=== PATIENT | female | born 1985 | race African-American/Black ===

== ENCOUNTER 2018-06-27 05:22 | Inpatient (IN) | payer MEDICAID ==
[2018-06-27] MEDS ORDERED: Terbutaline 1 MG/ML SDV SUBCUT PRN (05:34)
[2018-06-27] MEDS ORDERED: Oxytocin/0.9 % Sodium Chloride 30 UNIT/500 ML BAG IV SCH ×2 (05:45→06:00)
[2018-06-27] MEDS ORDERED: Lidocaine 1% 50 ML MDV INJECT PRN (05:47)
[2018-06-27] MEDS ORDERED: Tranexamic Acid 1,000 MG in Sodium Chloride 0.9% 100 ML IV PRN (05:47)
[2018-06-27] MEDS ORDERED: Water For Irrigation,Sterile 1,000 ML Container IRR PRN (05:47)
[2018-06-27] MEDS ORDERED: Sodium Chloride 0.9% 2.5 ML Syringe FLUSH PRN (05:47)
[2018-06-27] MEDS ORDERED: Misoprostol 200 MCG Tab PO PRN (05:47)
[2018-06-27] MEDS ORDERED: Butorphanol 1 MG/ML SDV IVPUSH PRN (05:47)
[2018-06-27] MEDS ORDERED: Carboprost Tromethamine 250 MCG/1 ML Amp IM PRN (05:47)
[2018-06-27] MEDS ORDERED: Nalbuphine 10 MG/1 ML Vial IVPUSH PRN (05:47)
[2018-06-27] MEDS ORDERED: Sodium Chloride 0.9% 10 ML Syringe FLUSH PRN (05:47)
[2018-06-27] MEDS ORDERED: Methylergonovine 0.2 MG/1 ML Amp IM PRN (05:47)
[2018-06-27] MEDS ORDERED: Misoprostol 25 MCG (1/4 of 100 MCG) Tab VAG PRN ×2 (06:00→10:00)
[2018-06-27] MEDS ORDERED: Misoprostol 200 MCG Tab PO SCH (06:00)
[2018-06-27] MEDS: Lactated Ringers 1,000 ML IV SCH ×2 (06:00→14:12)
[2018-06-27] MEDS ORDERED: Misoprostol 25 MCG (1/4 of 100 MCG) Tab PO ONE (06:16)
[2018-06-27] MEDS ORDERED: Misoprostol 25 MCG (1/4 of 100 MCG) Tab PO PRN (10:45)
--- NOTE | 2018-06-27 13:25 | PCM.LDHP ---
L&D History of Present Illness - General Date of Service: 06/27/18 Admit Problem/Dx: Patient Status Order with Admit Dx/Problem 06/27/18 05:47 Patient Status [ADT] Routine Admission Diagnosis/Problem Admission Diagnosis/Problem Planned Source of Information: Patient History Limitations: Reports: No Limitations - History of Present Illness Improves with: Reports: None Worsens with: Reports: None Associated Symptoms: Reports: N - Related Data Allergies/Adverse Reactions: Allergies Allergy/AdvReac Type Severity Reaction Status Date / Time No Known Allergies Allergy Verified 06/27/18 05:33 Home Medications: Home Meds PNV95/Ferrous Fumarate/FA [ Vitamin Tablet] 1 tab PO DAILY 06/27/18 [ History] Past Medical History HEENT History: Reports: None Cardiovascular History: Reports: None Respiratory History: Reports: None Gastrointestinal History: Reports: None Genitourinary History: Reports: None 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: , Other (See Below) Musculoskeletal History: Reports: None Neurological History: Reports: None Psychiatric History: Reports: None Endocrine/Metabolic History: Reports: None Hematologic History: Reports: None Immunologic History: Reports: None Oncologic (Cancer) History: Reports: None Dermatologic History: Reports: None - Infectious Disease History Infectious Disease History: Reports: Chicken Pox - Past Surgical History Head Surgeries/Procedures: Reports: None HEENT Surgical History: Reports: None Cardiovascular Surgical History: Reports: None Respiratory Surgical History: Reports: None GI Surgical History: Reports: None Female Surgical History: Reports: None Endocrine Surgical History: Reports: None Neurological Surgical History: Reports: None Musculoskeletal Surgical History: Reports: None Oncologic Surgical History: Reports: None Dermatological Surgical History: Reports: None Social & Family History - Family History Family Medical History: Unobtainable Endocrine/Metabolic: Reports: Diabetes, type II - Tobacco Use Smoking Status *Q: Never Smoker Second Hand Smoke Exposure: No - Recreational Drug Use Recreational Drug Use: No H&P Review of Systems - Review of Systems: Review Of Systems: See Below General: Reports: No Symptoms HEENT: Reports: No Symptoms Pulmonary: Reports: No Symptoms Cardiovascular: Reports: No Symptoms Gastrointestinal: Reports: No Symptoms Genitourinary: Reports: No Symptoms Musculoskeletal: Reports: No Symptoms Skin: Reports: No Symptoms Psychiatric: Reports: No Symptoms Neurological: Reports: No Symptoms Hematologic/Lymphatic: Reports: No Symptoms Immunologic: Reports: No Symptoms L&D Exam - Exam Exam: See Below - Vital Signs Weight: 91.172 kg - OB Specific Fundal Height In cm: 38 Contraction Intensity: Mild Movement: Active Heart Tones: Present Presentation: Vertex - Kwong Score Kwong Score Cervix Position: Midposition Kwong Score Consistency: Soft Kwong Score Effacement: 31-50% Kwong Score Dilation: 1-2 cm Kwong Score 's Station: -2 Kwong Score Total: 6 - Exam General: Alert, Oriented HEENT: PERRLA, Conjunctiva Clear, EACs Clear, EOMI, Hearing Intact, Mucosa Moist & [place], Nares Patent, Normal Nasal Septum, Posterior Pharynx Clear, TMs Clear Neck: Supple, Trachea Midline Lungs: Clear to Auscultation, Normal Respiratory Effort Cardiovascular: Regular Rate, Regular Rhythm GI/Abdominal Exam: Normal Bowel Sounds, Soft, Non-Tender, No Organomegaly, No Distention, No Abnormal Bruit, No Mass, Pelvis Stable Rectal Exam: Normal Exam, Normal Rectal Tone Genitourinary: Normal external exam, Normal bimanual exam, Normal speculum exam Back Exam: Normal Inspection, Full Range of Motion Extremities: Normal Inspection, Normal Range of Motion, Non-Tender, No Pedal Edema, Normal Capillary Refill Skin: Warm, Dry, Intact Neurological: Cranial Nerves Intact, Reflexes Equal Bilateral Psychiatric: Alert, Normal Affect, Normal Mood - Patient Data Lab Results Last 24 hrs: Laboratory Results - last 24 hr 06/27/18 06/27/18 Range/Units 05:55 05:55 WBC 5.58 (4.0-11.0) K/uL RBC 4.23 L (4.30-5.90) M/uL Hgb 12.2 (12.0-16.0) g/dL Hct 36.5 (36.0-46.0) % MCV 86.3 (80.0-98.0) fL MCH 28.8 (27.0-32.0) pg MCHC 33.4 (31.0-37.0) g/dL RDW Std Deviation 44.6 (28.0-62.0) fl RDW Coeff of [place] 15 (11.0-15.0) % Plt Count 193 (150-400) K/uL MPV 10.70 (7.40-12.00) fL Nucleated RBC % 0.0 /100WBC Nucleated RBCs # 0 K/uL Blood Type O POSITIVE Antibody Screen NEGATIVE Result Diagrams: 06/27/18 05:55 Problem List Initiated/Reviewed/Updated: Yes Orders Last 24hrs: Active Orders 24 hr Category Date Time Status Patient Status [ADT] Routine ADT 06/27/18 05:47 Active Bedrest Bathroom Privileges [RC] ASDIRECTED Care 06/27/18 05:34 Active Communication Order [RC] ASDIRECTED Care 06/27/18 05:34 Active Communication Order [RC] ASDIRECTED Care 06/27/18 05:34 Active Communication Order [RC] ASDIRECTED Care 06/27/18 05:34 Active Heart Tones [RC] CONTINUOUS Care 06/27/18 05:47 Active Non Stress Test [RC] PER UNIT ROUTINE Care 06/27/18 05:47 Active May Shower [RC] ASDIRECTED Care 06/27/18 05:47 Active Notify Provider [RC] PRN Care 06/27/18 05:34 Active Notify Provider [RC] PRN Care 06/27/18 05:34 Active Notify Provider [RC] PRN Care 06/27/18 05:47 Active Notify Provider [RC] STAT Care 06/27/18 05:34 Active Oxygen Therapy [RC] ASDIRECTED Care 06/27/18 05:34 Active Up ad Mell [RC] ASDIRECTED Care 06/27/18 05:47 Active Vaginal Exam [RC] PRN Care 06/27/18 05:34 Active Vaginal Exam [RC] PRN Care 06/27/18 05:47 Active Vital Signs [RC] PER UNIT ROUTINE Care 06/27/18 05:34 Active Vital Signs [RC] PER UNIT ROUTINE Care 06/27/18 05:47 Active Regular Diet [DIET] Diet 06/27/18 Lunch Active Butorphanol [Stadol] Med 06/27/18 05:47 Active 1 mg IVPUSH Q1H PRN Carboprost Tromethamine [Hemabate DS] Med 06/27/18 05:47 Active 250 mcg IM ASDIRECTED PRN Lactated Ringers [Ringers, Lactated] 1,000 ml Med 06/27/18 06:00 Active IV ASDIRECTED Lidocaine 1% [Xylocaine 1%] Med 06/27/18 05:47 Active 50 ml INJECT ONETIME PRN Methylergonovine [Methergine] Med 06/27/18 05:47 Active 0.2 mg IM ASDIRECTED PRN Nalbuphine [Nubain] Med 06/27/18 05:47 Active 10 mg IVPUSH Q1H PRN Oxytocin/0.9 % Sodium Chloride [Oxytocin 30 Unit/500 ML Med 06/27/18 05:45 Active -NS] 30 unit in 500 ml IV TITRATE Oxytocin/0.9 % Sodium Chloride [Oxytocin 30 Unit/500 ML Med 06/27/18 06:00 Active -NS] 30 unit in 500 ml IV TITRATE Sodium Chloride 0.9% [Saline Flush] Med 06/27/18 05:47 Active 10 ml FLUSH ASDIRECTED PRN Sodium Chloride 0.9% [Saline Flush] Med 06/27/18 05:47 Active 2.5 ml FLUSH ASDIRECTED PRN Terbutaline [Brethine] Med 06/27/18 05:34 Active 0.25 mg SUBCUT ASDIRECTED PRN Tranexamic Acid [Cyklokapron] 1,000 mg Med 06/27/18 05:47 Active Sodium Chloride 0.9% [Normal Saline] 100 ml IV ONETIME Water For Irrigation,Sterile [Sterile Water for Med 06/27/18 05:47 Active Irrigation] 1,000 ml IRR ASDIRECTED PRN miSOPROStol [Cytotec] Med 06/27/18 05:47 Active 200 mcg PO ONETIME PRN miSOPROStol [Cytotec] Med 06/27/18 10:45 Active 25 mcg PO Q4H PRN miSOPROStol [Cytotec] Med 06/27/18 06:00 Active 25 mcg VAG ONETIME PRN miSOPROStol [Cytotec] Med 06/27/18 10:00 Active 25 mcg VAG Q4H PRN Scalp Electrode [WOMSER] Per Unit Routine Oth 06/27/18 05:47 Ordered Medication Administration Instruction [OM.PC] Q3H Oth 06/27/18 05:45 Ordered Peripheral IV Insertion Adult [OM.PC] Routine Oth 06/27/18 05:47 Ordered Resuscitation Status Routine Resus Stat 06/27/18 05:47 Ordered Medication Orders Butorphanol Tartrate (Stadol) 1 mg IVPUSH Q1H PRN PRN Reason: Pain Carboprost Tromethamine (Hemabate Ds) 250 mcg IM ASDIRECTED PRN PRN Reason: Post Hemorrhage Oxytocin/Sodium Chloride (Oxytocin 30 Unit/500 Ml-Ns) 30 unit in 500 mls @ 2 mls/hr IV TITRATE DALIA; Protocol Lactated Ringer's (Ringers, Lactated) 1,000 mls @ 150 mls/hr IV ASDIRECTED DALIA Last Admin: 06/27/18 06:00 Dose: 500 mls/hr Oxytocin/Sodium Chloride (Oxytocin 30 Unit/500 Ml-Ns) 30 unit in 500 mls @ 999 mls/hr IV TITRATE DALIA Tranexamic Acid 1,000 mg/ (Sodium Chloride) 110 mls @ 660 mls/hr IV ONETIME PRN PRN Reason: Bleeding Lidocaine HCl (Xylocaine 1%) 50 ml INJECT ONETIME PRN PRN Reason: Laceration repair Methylergonovine Maleate (Methergine) 0.2 mg IM ASDIRECTED PRN PRN Reason: Post Hemorrhage Misoprostol (Cytotec) 25 mcg VAG ONETIME PRN PRN Reason: Cervical Ripening Last Admin: 06/27/18 06:45 Dose: 25 mcg Misoprostol (Cytotec) 25 mcg VAG Q4H PRN PRN Reason: Cervical Ripening Last Admin: 06/27/18 10:50 Dose: 25 mcg Misoprostol (Cytotec) 200 mcg PO ONETIME PRN PRN Reason: Post Hemorrhage Misoprostol (Cytotec) 25 mcg PO Q4H PRN PRN Reason: Other Last Admin: 06/27/18 10:51 Dose: 25 mcg Nalbuphine HCl (Nubain) 10 mg IVPUSH Q1H PRN PRN Reason: Pain (severe 7-10) Sodium Chloride (Saline Flush) 10 ml FLUSH ASDIRECTED PRN PRN Reason: Keep Vein Open Sodium Chloride (Saline Flush) 2.5 ml FLUSH ASDIRECTED PRN PRN Reason: Keep Vein Open Sterile Water (Sterile Water For Irrigation) 1,000 ml IRR ASDIRECTED PRN PRN Reason: delivery Terbutaline Sulfate (Brethine) 0.25 mg SUBCUT ASDIRECTED PRN PRN Reason: Tacysystole Assessment/Plan Comment:: Prostate admitted for elective induction with the Cytotec and Pitocin. Pelvic examination and she is to 60% vertex -3 I do not fissure rupture of the membrane clear fluid. We will start her on Pitocin as per protocol and she can have epidural anesthesia when it is appropriate.
[2018-06-27] MEDS ORDERED: Lidocaine HCl/EPINEPHrine 5 ML IJ ONE (15:49)
--- NOTE | 2018-06-27 16:43 | PCM.PREANE ---
Preanesthetic Assessment - Anesthesia/Transfusion/Family Hx Anesthesia History: Prior Anesthesia Without Reaction Transfusion History: No Prior Transfusion(s) - Review of Systems General: No Symptoms Pulmonary: No Symptoms Cardiovascular: No Symptoms Gastrointestinal: No Symptoms Neurological: No Symptoms Other: Reports: None - Physical Assessment Height: 5 ft 7 in Weight: 91.172 kg ASA Class: 2 Mental Status: Alert & Oriented x3 Airway Class: Mallampati = 2 Dentition: Reports: Normal Dentition Thyro-Mental Finger Breadths: 3 Mouth Opening Finger Breadths: 3 ROM/Head Extension: Full Lungs: Clear to Auscultation, Normal Respiratory Effort Cardiovascular: Regular Rate, Regular Rhythm - Lab Values: Laboratory Last Values WBC 5.58 K/uL (4.0-11.0) 06/27/18 05:55 RBC 4.23 M/uL (4.30-5.90) L 06/27/18 05:55 Hgb 12.2 g/dL (12.0-16.0) 06/27/18 05:55 Hct 36.5 % (36.0-46.0) 06/27/18 05:55 MCV 86.3 fL (80.0-98.0) 06/27/18 05:55 MCH 28.8 pg (27.0-32.0) 06/27/18 05:55 MCHC 33.4 g/dL (31.0-37.0) 06/27/18 05:55 RDW Std Deviation 44.6 fl (28.0-62.0) 06/27/18 05:55 RDW Coeff of [place] 15 % (11.0-15.0) 06/27/18 05:55 Plt Count 193 K/uL (150-400) 06/27/18 05:55 MPV 10.70 fL (7.40-12.00) 06/27/18 05:55 Nucleated RBC % 0.0 /100WBC 06/27/18 05:55 Nucleated RBCs # 0 K/uL 06/27/18 05:55 Blood Type O POSITIVE 06/27/18 05:55 Antibody Screen NEGATIVE 06/27/18 05:55 - Allergies Allergies/Adverse Reactions: Allergies Allergy/AdvReac Type Severity Reaction Status Date / Time No Known Allergies Allergy Verified 06/27/18 05:33 - Acknowledgements Anesthesia Type Planned: Epidural Pt an Appropriate Candidate for the Planned Anesthesia: Yes Alternatives and Risks of Anesthesia Discussed w Pt/Guardian: Yes Pt/Guardian Understands and Agrees with Anesthesia Plan: Yes PreAnesthesia Questionnaire HEENT History: Reports: None Cardiovascular History: Reports: None Respiratory History: Reports: None Gastrointestinal History: Reports: None Genitourinary History: Reports: None 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: , Other (See Below) : 3 Para: 1 LMP (Approximate): Musculoskeletal History: Reports: None Neurological History: Reports: None Psychiatric History: Reports: None Endocrine/Metabolic History: Reports: None Hematologic History: Reports: None Immunologic History: Reports: None Oncologic (Cancer) History: Reports: None Dermatologic History: Reports: None - Infectious Disease History Infectious Disease History: Reports: Chicken Pox - Past Surgical History Head Surgeries/Procedures: Reports: None HEENT Surgical History: Reports: None Cardiovascular Surgical History: Reports: None Respiratory Surgical History: Reports: None GI Surgical History: Reports: None Female Surgical History: Reports: None Endocrine Surgical History: Reports: None Neurological Surgical History: Reports: None Musculoskeletal Surgical History: Reports: None Oncologic Surgical History: Reports: None Dermatological Surgical History: Reports: None - SUBSTANCE USE Smoking Status *Q: Never Smoker Second Hand Smoke Exposure: No Recreational Drug Use History: No - HOME MEDS Home Medications: Home Meds PNV95/Ferrous Fumarate/FA [ Vitamin Tablet] 1 tab PO DAILY 06/27/18 [ History] - CURRENT (IN HOUSE) MEDS Current Meds: Current Medications Butorphanol Tartrate (Stadol) 1 mg IVPUSH Q1H PRN PRN Reason: Pain Carboprost Tromethamine (Hemabate Ds) 250 mcg IM ASDIRECTED PRN PRN Reason: Post Hemorrhage Oxytocin/Sodium Chloride (Oxytocin 30 Unit/500 Ml-Ns) 30 unit in 500 mls @ 2 mls/hr IV TITRATE DALIA; Protocol Last Admin: 06/27/18 14:08 Dose: 2 munits/min, 2 mls/hr Lactated Ringer's (Ringers, Lactated) 1,000 mls @ 150 mls/hr IV ASDIRECTED DALIA Last Admin: 06/27/18 14:12 Dose: 150 mls/hr Oxytocin/Sodium Chloride (Oxytocin 30 Unit/500 Ml-Ns) 30 unit in 500 mls @ 999 mls/hr IV TITRATE DALIA Tranexamic Acid 1,000 mg/ (Sodium Chloride) 110 mls @ 660 mls/hr IV ONETIME PRN PRN Reason: Bleeding Lidocaine HCl (Xylocaine 1%) 50 ml INJECT ONETIME PRN PRN Reason: Laceration repair Methylergonovine Maleate (Methergine) 0.2 mg IM ASDIRECTED PRN PRN Reason: Post Hemorrhage Misoprostol (Cytotec) 25 mcg VAG ONETIME PRN PRN Reason: Cervical Ripening Last Admin: 06/27/18 06:45 Dose: 25 mcg Misoprostol (Cytotec) 25 mcg VAG Q4H PRN PRN Reason: Cervical Ripening Last Admin: 06/27/18 10:50 Dose: 25 mcg Misoprostol (Cytotec) 200 mcg PO ONETIME PRN PRN Reason: Post Hemorrhage Misoprostol (Cytotec) 25 mcg PO Q4H PRN PRN Reason: Other Last Admin: 06/27/18 10:51 Dose: 25 mcg Nalbuphine HCl (Nubain) 10 mg IVPUSH Q1H PRN PRN Reason: Pain (severe 7-10) Sodium Chloride (Saline Flush) 10 ml FLUSH ASDIRECTED PRN PRN Reason: Keep Vein Open Sodium Chloride (Saline Flush) 2.5 ml FLUSH ASDIRECTED PRN PRN Reason: Keep Vein Open Sterile Water (Sterile Water For Irrigation) 1,000 ml IRR ASDIRECTED PRN PRN Reason: delivery Terbutaline Sulfate (Brethine) 0.25 mg SUBCUT ASDIRECTED PRN PRN Reason: Tacysystole Discontinued Medications Fentanyl/Bupivacaine HCl (Uosxirmv-Opqch-Nq 2 Mcg/Ml-0.125%) Confirm Administered Dose 100 mls @ as directed .ROUTE .STK-MED ONE Stop: 06/27/18 15:49 Lidocaine/Epinephrine (Lidocaine 1.5%-Epi 1:200,000) Confirm Administered Dose 5 ml IJ .STK-MED ONE Stop: 06/27/18 15:50 Misoprostol (Cytotec) 25 mcg PO Q4H DALIA Misoprostol (Cytotec) 25 mcg PO ONETIME ONE Stop: 06/27/18 06:17 Last Admin: 06/27/18 06:41 Dose: 25 mcg
[2018-06-27] MEDS ORDERED: Bupivacaine 0.25% 10 ML SDV ONE (17:01)
[2018-06-27] MEDS ORDERED: Ibuprofen 800 MG Tab PO PRN (17:29)
[2018-06-27] MEDS ORDERED: Witch Hazel Medicated Pads 40/Jar TOP PRN (17:29)
[2018-06-27] MEDS ORDERED: oxyCODONE 5 MG Tab PO PRN (17:29)
[2018-06-27] MEDS ORDERED: Bisacodyl 10 MG Supp RECTAL PRN (17:29)
[2018-06-27] MEDS ORDERED: Ibuprofen 400 MG Tab PO PRN (17:29)
[2018-06-27] MEDS ORDERED: Docusate Sodium 100 MG Cap PO PRN (17:29)
[2018-06-27] MEDS ORDERED: Acetaminophen 500 MG Tab PO PRN ×2 (17:29)
[2018-06-27] MEDS ORDERED: Benzocaine/Menthol 20%-0.5% Spray 78 GM Cannister TOP PRN (17:29)
[2018-06-27] MEDS ORDERED: Lanolin 100% Cream 7 GM Tube TOP PRN (17:29)
--- NOTE | 2018-06-27 19:47 | OR ---
SURGEON: Johnson Hays MD DATE OF PROCEDURE: 06/27/2018 Ms. Reyna is a 32-year-old patient, she is para 1-0-0-1, she is followed in our clinic primarily by me. She had no complication. Her GBS status was negative. She is admitted for elective induction with Cytotec and Pitocin. She received two doses of Cytotec, and then artificial rupture of the membrane was done by me at 2 to 3 cm and it was a clear fluid. She had Pitocin for augmentation of labor and she have an epidural for labor analgesia, the patient rather progressed rapidly. She was able to accomplish normal spontaneous vaginal delivery, attended by me and the student rn gynecology, male fetus and score of 8 and 9, and the placenta delivered spontaneous, complete, and intact. There was no perineal labial laceration. Estimated blood loss was 250 to 300 mL. heart rate was category 1 through the entire process of Labor and Delivery. There was no complication in the Labor and Delivery. VIVIENNE / [place] /[id number]
--- NOTE | 2018-06-28 08:21 | PCM.PNPP ---
<Kaylyn Steel R - Last Filed: 06/28/18 08:42> - General Info Date of Service: 06/28/18 Admission Dx/Problem (Free Text): Patient Status Order with Admit Dx/Problem 06/27/18 05:47 Patient Status [ADT] Routine Admission Diagnosis/Problem Admission Diagnosis/Problem Planned Functional Status: Reports: Pain Controlled - Review of Systems General: Reports: No Symptoms HEENT: Reports: No Symptoms Pulmonary: Reports: No Symptoms Cardiovascular: Reports: No Symptoms Gastrointestinal: Reports: No Symptoms Genitourinary: Reports: No Symptoms Musculoskeletal: Reports: No Symptoms Skin: Reports: No Symptoms Neurological: Reports: No Symptoms Psychiatric: Reports: No Symptoms - General Info Date of Service: 06/28/18 - Patient Data Vital Signs - Most Recent: Last Vital Signs Temp 36.4 C 06/28/18 04:37 Pulse 74 06/28/18 04:37 Resp 16 06/28/18 04:37 BP 101/62 06/28/18 04:37 Pulse Ox 99 06/28/18 04:37 Weight - Most Recent: 91.172 kg Lab Results - Last 24 Hours: Laboratory Results - last 24 hr 06/28/18 Range/Units 05:00 Hgb 11.5 L (12.0-16.0) g/dL Hct 34.2 L (36.0-46.0) % Med Orders - Current: Current Medications Acetaminophen (Tylenol Extra Strength) 500 mg PO Q4H PRN PRN Reason: Pain Acetaminophen (Tylenol Extra Strength) 1,000 mg PO Q4H PRN PRN Reason: Pain Last Admin: 06/28/18 01:28 Dose: 1,000 mg Benzocaine/Menthol (Dermoplast Pain Relief 20%-0.5% [place]) 78 gm TOP ASDIRECTED PRN PRN Reason: Perineal Comfort Measure Bisacodyl (Dulcolax) 10 mg RECTAL ONETIME PRN PRN Reason: Constipation Butorphanol Tartrate (Stadol) 1 mg IVPUSH Q1H PRN PRN Reason: Pain Carboprost Tromethamine (Hemabate Ds) 250 mcg IM ASDIRECTED PRN PRN Reason: Post Hemorrhage Docusate Sodium (Colace) 100 mg PO BID PRN PRN Reason: Constipation Emollient Ointment (Lansinoh Hpa) 0 gm TOP ASDIRECTED PRN PRN Reason: Sore Nipples Oxytocin/Sodium Chloride (Oxytocin 30 Unit/500 Ml-Ns) 30 unit in 500 mls @ 2 mls/hr IV TITRATE DALIA; Protocol Last Titration: 06/27/18 17:28 Dose: 500 munits/min, 500 mls/hr Lactated Ringer's (Ringers, Lactated) 1,000 mls @ 150 mls/hr IV ASDIRECTED DALIA Last Admin: 06/27/18 14:12 Dose: 150 mls/hr Oxytocin/Sodium Chloride (Oxytocin 30 Unit/500 Ml-Ns) 30 unit in 500 mls @ 999 mls/hr IV TITRATE DALIA Tranexamic Acid 1,000 mg/ (Sodium Chloride) 110 mls @ 660 mls/hr IV ONETIME PRN PRN Reason: Bleeding Ibuprofen (Motrin) 400 mg PO Q4H PRN PRN Reason: Pain Ibuprofen (Motrin) 800 mg PO Q6H PRN PRN Reason: Pain Last Admin: 06/27/18 23:47 Dose: 800 mg Lidocaine HCl (Xylocaine 1%) 50 ml INJECT ONETIME PRN PRN Reason: Laceration repair Methylergonovine Maleate (Methergine) 0.2 mg IM ASDIRECTED PRN PRN Reason: Post Hemorrhage Misoprostol (Cytotec) 25 mcg VAG ONETIME PRN PRN Reason: Cervical Ripening Last Admin: 06/27/18 06:45 Dose: 25 mcg Misoprostol (Cytotec) 25 mcg VAG Q4H PRN PRN Reason: Cervical Ripening Last Admin: 06/27/18 10:50 Dose: 25 mcg Misoprostol (Cytotec) 200 mcg PO ONETIME PRN PRN Reason: Post Hemorrhage Misoprostol (Cytotec) 25 mcg PO Q4H PRN PRN Reason: Other Last Admin: 06/27/18 10:51 Dose: 25 mcg Nalbuphine HCl (Nubain) 10 mg IVPUSH Q1H PRN PRN Reason: Pain (severe 7-10) Oxycodone HCl (Oxycodone) 5 mg PO Q2H PRN PRN Reason: Pain Sodium Chloride (Saline Flush) 10 ml FLUSH ASDIRECTED PRN PRN Reason: Keep Vein Open Sodium Chloride (Saline Flush) 2.5 ml FLUSH ASDIRECTED PRN PRN Reason: Keep Vein Open Sterile Water (Sterile Water For Irrigation) 1,000 ml IRR ASDIRECTED PRN PRN Reason: delivery Terbutaline Sulfate (Brethine) 0.25 mg SUBCUT ASDIRECTED PRN PRN Reason: Tacysystole Witbhavik Puja (Tucks) 1 pad TOP ASDIRECTED PRN PRN Reason: comfort care Discontinued Medications Bupivacaine HCl (Sensorcaine-Mpf 0.25%) Confirm Administered Dose 10 ml .ROUTE .STK-MED ONE Stop: 06/27/18 17:02 Fentanyl/Bupivacaine HCl (Vjlfxhyo-Qqnkr-Ta 2 Mcg/Ml-0.125%) Confirm Administered Dose 100 mls @ as directed .ROUTE .STK-MED ONE Stop: 06/27/18 15:49 Lidocaine/Epinephrine (Lidocaine 1.5%-Epi 1:200,000) Confirm Administered Dose 5 ml IJ .STK-MED ONE Stop: 06/27/18 15:50 Misoprostol (Cytotec) 25 mcg PO Q4H DALIA Misoprostol (Cytotec) 25 mcg PO ONETIME ONE Stop: 06/27/18 06:17 Last Admin: 06/27/18 06:41 Dose: 25 mcg - Interaction Disposition, : at Bedside Infant Interaction: Holding Infant Infant Feeding: Breastfed Infant; Nursed Well Support Person: - Recovery Exam Fundal Tone: Firm Fundal Level: 2 Fingerbreadths Below Umbilicus Fundal Placement: Midline Lochia Amount: Scant Lochia Color: Rubra/Red Perineum Description: Intact, Minimal Bruising/Swelling Episiotomy/Laceration: None Bladder Status: Nonpalpable, Voiding Urinary Elimination: Voided - Exam General: Alert, Oriented, Cooperative, No Acute Distress HEENT: Pupils Equal Neck: Supple, Trachea Midline Lungs: Clear to Auscultation, Normal Respiratory Effort Cardiovascular: Regular Rate, Regular Rhythm GI/Abdominal Exam: Normal Bowel Sounds, Soft, Non-Tender, No Organomegaly, No Distention, No Abnormal Bruit, No Mass, Pelvis Stable Extremities: Normal Inspection, Normal Range of Motion, Non-Tender, No Pedal Edema, Normal Capillary Refill Skin: Warm, Dry, Intact Wound/Incisions: Healing Well Neurological: No New Focal Deficit Psy/Mental Status: Alert, Normal Affect, Normal Mood Physical Findings Comment:: A: Day 1: status post , well, baby to bedside, lochia scant, physical exam unremarkable P: Regular care - Plan Plan:: Prostate admitted for elective induction with the Cytotec and Pitocin. Pelvic examination and she is to 60% vertex -3 I do not fissure rupture of the membrane clear fluid. We will start her on Pitocin as per protocol and she can have epidural anesthesia when it is appropriate. <Johnson Hays - Last Filed: 06/28/18 08:54> - General Info Functional Status: Reports: Pain Controlled - Review of Systems General: Reports: No Symptoms HEENT: Reports: No Symptoms Pulmonary: Reports: No Symptoms Cardiovascular: Reports: No Symptoms Gastrointestinal: Reports: No Symptoms Genitourinary: Reports: No Symptoms Musculoskeletal: Reports: No Symptoms Skin: Reports: No Symptoms Neurological: Reports: No Symptoms Psychiatric: Reports: No Symptoms - Patient Data Vital Signs - Most Recent: Last Vital Signs Temp 36.6 C 06/28/18 08:30 Pulse 84 06/28/18 08:30 Resp 16 06/28/18 08:30 BP 131/74 06/28/18 08:30 Pulse Ox 99 06/28/18 08:30 Lab Results - Last 24 Hours: Laboratory Results - last 24 hr 06/28/18 Range/Units 05:00 Hgb 11.5 L (12.0-16.0) g/dL Hct 34.2 L (36.0-46.0) % Med Orders - Current: Current Medications Acetaminophen (Tylenol Extra Strength) 500 mg PO Q4H PRN PRN Reason: Pain Acetaminophen (Tylenol Extra Strength) 1,000 mg PO Q4H PRN PRN Reason: Pain Last Admin: 06/28/18 01:28 Dose: 1,000 mg Benzocaine/Menthol (Dermoplast Pain Relief 20%-0.5% [place]) 78 gm TOP ASDIRECTED PRN PRN Reason: Perineal Comfort Measure Bisacodyl (Dulcolax) 10 mg RECTAL ONETIME PRN PRN Reason: Constipation Butorphanol Tartrate (Stadol) 1 mg IVPUSH Q1H PRN PRN Reason: Pain Carboprost Tromethamine (Hemabate Ds) 250 mcg IM ASDIRECTED PRN PRN Reason: Post Hemorrhage Docusate Sodium (Colace) 100 mg PO BID PRN PRN Reason: Constipation Emollient Ointment (Lansinoh Hpa) 0 gm TOP ASDIRECTED PRN PRN Reason: Sore Nipples Oxytocin/Sodium Chloride (Oxytocin 30 Unit/500 Ml-Ns) 30 unit in 500 mls @ 2 mls/hr IV TITRATE DALIA; Protocol Last Titration: 06/27/18 17:28 Dose: 500 munits/min, 500 mls/hr Lactated Ringer's (Ringers, Lactated) 1,000 mls @ 150 mls/hr IV ASDIRECTED DALIA Last Admin: 06/27/18 14:12 Dose: 150 mls/hr Oxytocin/Sodium Chloride (Oxytocin 30 Unit/500 Ml-Ns) 30 unit in 500 mls @ 999 mls/hr IV TITRATE DALIA Tranexamic Acid 1,000 mg/ (Sodium Chloride) 110 mls @ 660 mls/hr IV ONETIME PRN PRN Reason: Bleeding Ibuprofen (Motrin) 400 mg PO Q4H PRN PRN Reason: Pain Ibuprofen (Motrin) 800 mg PO Q6H PRN PRN Reason: Pain Last Admin: 06/27/18 23:47 Dose: 800 mg Lidocaine HCl (Xylocaine 1%) 50 ml INJECT ONETIME PRN PRN Reason: Laceration repair Methylergonovine Maleate (Methergine) 0.2 mg IM ASDIRECTED PRN PRN Reason: Post Hemorrhage Misoprostol (Cytotec) 25 mcg VAG ONETIME PRN PRN Reason: Cervical Ripening Last Admin: 06/27/18 06:45 Dose: 25 mcg Misoprostol (Cytotec) 25 mcg VAG Q4H PRN PRN Reason: Cervical Ripening Last Admin: 06/27/18 10:50 Dose: 25 mcg Misoprostol (Cytotec) 200 mcg PO ONETIME PRN PRN Reason: Post Hemorrhage Misoprostol (Cytotec) 25 mcg PO Q4H PRN PRN Reason: Other Last Admin: 06/27/18 10:51 Dose: 25 mcg Nalbuphine HCl (Nubain) 10 mg IVPUSH Q1H PRN PRN Reason: Pain (severe 7-10) Oxycodone HCl (Oxycodone) 5 mg PO Q2H PRN PRN Reason: Pain Sodium Chloride (Saline Flush) 10 ml FLUSH ASDIRECTED PRN PRN Reason: Keep Vein Open Sodium Chloride (Saline Flush) 2.5 ml FLUSH ASDIRECTED PRN PRN Reason: Keep Vein Open Sterile Water (Sterile Water For Irrigation) 1,000 ml IRR ASDIRECTED PRN PRN Reason: delivery Terbutaline Sulfate (Brethine) 0.25 mg SUBCUT ASDIRECTED PRN PRN Reason: Tacysystole Witbhavik Puja (Tucks) 1 pad TOP ASDIRECTED PRN PRN Reason: comfort care Discontinued Medications Bupivacaine HCl (Sensorcaine-Mpf 0.25%) Confirm Administered Dose 10 ml .ROUTE .STK-MED ONE Stop: 06/27/18 17:02 Last Admin: 06/28/18 08:25 Dose: Not Given Fentanyl/Bupivacaine HCl (Fdokbgfa-Soliv-Vw 2 Mcg/Ml-0.125%) Confirm Administered Dose 100 mls @ as directed .ROUTE .[employer]-MED ONE Stop: 06/27/18 15:49 Last Admin: 06/28/18 08:25 Dose: Not Given Lidocaine/Epinephrine (Lidocaine 1.5%-Epi 1:200,000) Confirm Administered Dose 5 ml IJ .STK-MED ONE Stop: 06/27/18 15:50 Last Admin: 06/28/18 08:25 Dose: Not Given Misoprostol (Cytotec) 25 mcg PO Q4H DALIA Misoprostol (Cytotec) 25 mcg PO ONETIME ONE Stop: 06/27/18 06:17 Last Admin: 06/27/18 06:41 Dose: 25 mcg - Exam General: Alert, Oriented HEENT: Pupils Equal Neck: Supple Lungs: Clear to Auscultation, Normal Respiratory Effort Cardiovascular: Regular Rate, Regular Rhythm GI/Abdominal Exam: Normal Bowel Sounds, Soft, Non-Tender, No Organomegaly, No Distention, No Abnormal Bruit, No Mass, Pelvis Stable Extremities: Normal Inspection, Normal Range of Motion, Non-Tender, No Pedal Edema, Normal Capillary Refill Skin: Warm, Dry, Intact Wound/Incisions: Healing Well Neurological: No New Focal Deficit Psy/Mental Status: Alert, Normal Affect, Normal Mood - Problem List Review Problem List Initiated/Reviewed/Updated: Yes - My Orders Last 24 Hours: My Active Orders 06/27/18 10:00 miSOPROStol [Cytotec] 25 mcg VAG Q4H PRN 06/27/18 10:45 miSOPROStol [Cytotec] 25 mcg PO Q4H PRN 06/27/18 17:29 Patient Status [ADT] Routine May Shower [RC] ASDIRECTED Vital Signs [RC] PER UNIT ROUTINE Acetaminophen [Tylenol Extra Strength] 1,000 mg PO Q4H PRN Acetaminophen [Tylenol Extra Strength] 500 mg PO Q4H PRN Benzocaine/Menthol [Dermoplast Pain Relief 20%-0.5% [place]] 78 gm TOP ASDIRECTED PRN Bisacodyl [Dulcolax] 10 mg RECTAL ONETIME PRN Docusate Sodium [Colace] 100 mg PO BID PRN Ibuprofen [Motrin] 400 mg PO Q4H PRN Ibuprofen [Motrin] 800 mg PO Q6H PRN Lanolin [Lansinoh HPA] See Dose Instructions TOP ASDIRECTED PRN Witch Puja [Tucks] 1 pad TOP ASDIRECTED PRN oxyCODONE 5 mg PO Q2H PRN Assess Lochia [WOMSER] Per Unit Routine Assess Uterine Involution [WOMSER] Per Unit Routine Peripheral IV Discontinue [OM.PC] Routine 06/27/18 Lunch Regular Diet [DIET]
--- NOTE | 2018-06-28 17:45 | PCM48HPAN ---
Post Anesthesia Note - EVALUATION WITHIN 48HRS OF ANESTHETIC Vital Signs in Normal Range: Yes Patient Participated in Evaluation: Yes Respiratory Function Stable: Yes Airway Patent: Yes Cardiovascular Function Stable: Yes Hydration Status Stable: Yes Pain Control Satisfactory: Yes Nausea and Vomiting Control Satisfactory: Yes Mental Status Recovered: Yes Resp Rate: 18 - COMMENTS/OBSERVATIONS Free Text/Narrative:: No anesthesia complications post epidural. Pt's only complaint was that epidural did not provide any relief for delivery.
[2018-06-28 20:09] VITALS: BP 135/63
== END 2018-06-28 20:55 | disposition home or self-care (01) | DRG 807 ==
LOC: MW.OBCHECK 05:22 → MW.OB 05:24 → MW.OBCHECK 05:47 → OBSVTOIN 17:22 → MW.OB 17:22
PROVIDERS: ADMIT Obstetrics & Gynecology; ATTEND Obstetrics & Gynecology
PROC: 10907ZC Drainage of Amniotic Fluid, Therapeutic from Products of Conception, Via Natural or Artificial Opening (ICD-10-PCS; principal; 2018-06-27)
PROC: 3E0P7VZ Introduction of Hormone into Female Reproductive, Via Natural or Artificial Opening (ICD-10-PCS; principal; 2018-06-27)
PROC: 3E033VJ Introduction of Other Hormone into Peripheral Vein, Percutaneous Approach (ICD-10-PCS; principal; 2018-06-27)
PROC: 10E0XZZ Delivery of Products of Conception, External Approach (ICD-10-PCS; principal; 2018-06-27)
PROC: 3E0R3BZ Introduction of Anesthetic Agent into Spinal Canal, Percutaneous Approach (ICD-10-PCS; 2018-06-27)
PROC: 00HU33Z Insertion of Infusion Device into Spinal Canal, Percutaneous Approach (ICD-10-PCS; 2018-06-27)
DX: O48.0 Post-term pregnancy (principal); Z37.0 Single live birth; Z3A.40 40 weeks gestation of pregnancy
CPT/HCPCS: 36415; 59025; 59409; 85014; 85018; 85027; 86850; 86900; 86901; A9270-GY; J2590; J3490; J7120